=== PATIENT | female | born 1980 | race Caucasian/White ===

== ENCOUNTER 2023-10-17 08:59 | Outpatient (AMB) | payer OTHER, SELFPAY ==
--- NOTE | 2023-10-17 09:45 | AM.OFFWIN_ITS ---
Intake Vital Signs 10/17/23 09:57 Weight 272 lb BP 120/82 Blood Pressure Location Rt brachial Position Sitting Pulse 81 Pulse Source Pulse Oximeter Temp 97.6 F Temp Source Oral Pulse Oximetry (%) 98 Oxygen Delivery Method Room Air Intake Visit Reasons: EP lost voice throat pain congestion [id number] Intake Note: Patient here for nasal congestion, sore throat and lost her voice this has been going on since tuesday. Patient Tobacco Use Status: Never used Tobacco Allergies penicillin G Adverse Reaction (Mild, Verified 10/17/23 09:46) Unknown sulfamethoxazole [From Bactrim] Adverse Reaction (Mild, Verified 10/17/23 09:46) Unknown trimethoprim [From Bactrim] Adverse Reaction (Mild, Verified 10/17/23 09:46) Unknown Do you need a note to return to daycare/school/sports/work: No HPI HPI Comments History of Present Illness Details 42-year-old female presents today compla ining of persistent sore throat and maxillary sinus pain right great greater than left for the last 7 days PFSH Social History Patient Tobacco Use Status: Never used Tobacco Review of Systems Eyes Reports no additional complaints ENT Reports Normal hearing present, Reports facial pain, Reports nasal discharge and Reports sinus pain Card Reports no additional complaints Resp Reports cough GI Reports no additional complaints Neuro Reports Normal hearing present Physical Exam Vital Signs: Last Vital Signs Temp 97.6 F 10/17/23 09:57 Pulse 81 10/17/23 09:57 BP 120/82 10/17/23 09:57 Pulse Ox 98 10/17/23 09:57 Oxygen Delivery Method Room Air 10/17/23 09:57 HEENT Head: Yes normocephalic and Yes atraumatic Ears: external ears normal, TM's normal bilaterally, TM normal on the right, TM normal on the left and EAC's normal General nose exam: Normal external nose present Face and sinus: Yes normal facial exam and Yes sinus tenderness (Maxillary right greater than left) Throat: Yes posterior oropharynx normal Resp Effort & Inspection: normal respiratory effort Auscultation: clear to auscultation bilaterally Cardio Palpation: normal PMI Rate: regular rate Rhythm: regular rhythm Neuro Cranial nerves: Yes Normal hearing present Results AMB Rapid Strep AMB Rapid Strep Negative Last Edit by LUIS DANIEL Hunter on 10/17/23 10:39 Assessment & Plan Assessment & Plan (1) Sore throat: Code(s): J02.9 - Acute pharyngitis, unspecified Plan: See plan (2) Sinusitis: Code(s): J32.9 - Chronic sinusitis, unspecified Plan: We will be in touch tomorrow with the results of the viral culture. Orders: Orders SARS-CoV2/FLU/RSV Today J02.9 - Acute pharyngitis, unspecified AMB Rapid Strep Screen Today Z13.9 - Encounter for screening, unspecified Medications: New doxycycline hyclate 100 mg PO BID 7 days 14 caps 0RF Patient Instructions: See plan Coding Level of Care Code Est Pt Level 3 (73797) Diagnoses Sore throat J02.9 Sinusitis J32.9
[2023-10-17 09:57] VITALS: BP 120/82; PULSE 81; TEMP 36.4; O2SAT 98
== END 2023-10-17 11:24 | disposition home or self-care (01) ==
PROVIDERS: Visit Provider Physician Assistant Medical
DX: J02.9 Acute pharyngitis, unspecified (principal); J32.9 Chronic sinusitis, unspecified
CPT/HCPCS: 87880; 99213

== ENCOUNTER 2023-10-17 13:25 | Outpatient (REF) | payer OTHER, SELFPAY ==
[2023-10-17 14:17] LABS: Influenza A PCR NEGATIVE (Negative); Influenza B PCR NEGATIVE (Negative); Resp Syncy Virus RNA Qual PCR NEGATIVE (Negative); SARS COV2 PCR INHOUSE NEGATIVE (Negative)
== END 2023-10-17 13:26 | disposition home or self-care (01) ==
LOC: HO.HMGCLNP 13:25
PROVIDERS: Visit Provider Physician Assistant Medical
DX: Z11.52 Encounter for screening for COVID-19 (principal); Z20.822 Contact with and (suspected) exposure to COVID-19; J02.9 Acute pharyngitis, unspecified
CPT/HCPCS: 0241U